=== PATIENT | female | born 1955 | race Hispanic/Latino ===

== ENCOUNTER 2021-03-30 17:29 | Observation (INO) | payer OTHER ==
--- OUTSIDE RECORDS SUMMARY | 2021-03-30 17:31 | XMS REPORT | Continuity of Care Document ---
:1955 Author Organization [facility] t Address [address] [place] [address] Care Team Providers Name Role Phone Unavailable Unavailable Unavailable Problems This patient has no known problems. Allergies, Adverse Reactions, Alerts Allergy Allergy Status Severity Reaction(s) Onset Inactive Treating Comm ents Source Name Type Date Date Clinician penicill Adverse Active Info Not [facility] codeine Adverse Active Info Not [facility] Reaction Available [facility] MORPHINE Adverse Active Info Not [facility] Reaction Available [facility] Medications Ordered Filled Start Stop Current Ordering Indication Dosage Frequency Signature Comments Components Source Medication Medication Date Date Medication? Clinician (SIG) Name Name Janumet XR Janumet XR Yes Erwin [address] [facility]25 [facility] Folic Acid Folic Acid Yes Eriwn [address] [facility]rano [facility] Vytorin Vytorin Yes Erwin [address] [facility] Atorvastati Atorvastati Yes Erwin [address] [facility] n Calcium n Calcium Medrano [facility] Lisinopril- Lisinopril- Yes Erwin [address] [facility] Hydrochloro Hydrochloro Medrano [facility] thiazide thiazide [facility] Janumet Janumet Yes Erwin [address] [facility]rano with meals [facility] Levothyroxi Levothyroxi Yes Erwin TK [address] [facility] ne Sodium ne Sodium [facility]rano QD [facility] Levothyroxi Levothyroxi Yes Erwin [address] [facility] ne Sodium ne Sodium Medrano in the [facility] kes - morning on [facility] an empty l stomach Outpati ent Clinics [facility] Yes Erwin 1 tablet [facility] Procedures This patient has no known procedures. Encounters Start End Encounter Admission Attending Care Care Encounter Source Date/Time Date/Time Type Type Clinicians Facility Department ID 2021-03-24 2021-03-[address] [facility] [id number] 2021-02-21 2021-02-[address] [facility] [id number] [facility] 2021-02-06 2021-02-06 [facility] [id number] [facility] 2021-01-30 2021-01-30 [facility] [id number] [facility] 2021-01-30 2021-01-30 [facility] [id number] [facility] 2021-01-30 2021-01-30 [facility] [id number] [facility] 2020-11-07 2020-11-07 [facility] [id number] [facility] 2020-10-21 2020-10-[address] [facility] [id number] [facility] 2020-10-19 2020-10-[facility] [id number] [facility] 2020-10-17 2020-10-17 [facility] [id number] [facility] 2020-10-11 2020-10-11 [facility] [id number] [facility] 2020-08-26 2020-08-26 Out[facility] [id number] [facility] 2020-07-26 2020-07-26 Out[facility] [id number] [facility] 2020-07-19 2020-07-19 Out[facility] [id number] [facility] 2020-06-06 2020-06-06 [facility] [id number] [facility] 2020-06-01 2020-06-01 Out[facility] [id number] [facility] 2020-04-12 2020-04-12 [facility] [id number] [facility] 11:30[facility]00 11:30:00 [facility] 2020-02-01 2020-02-01 [facility] [id number] 09:11:00 09:11:00 [facility] 2020-01-25 2020-01-25 [facility] [id number] 14:30:00 14:30:00 t [facility] [employer] [facility] 2019-11-30 2019-11-30 [facility] [id number] 14:40:00 14:40:00 t [facility] Outpat[facility] ent Clinics 2019-11-30 2019-11-30 [facility] [id number] 10:38:00 10:38:00 t [email or web address] [facility] Outpat[facility] Clinics 2019-11-23 2019-11-23 [facility] [id number] 08:49:00 08:49:00 t [email or web address] [facility] Out[facility] Clin[facility] 2019-09-09 2019-09-09 [facility] [id number] [facility] 09:00:00 09:00:00 t [email or web address] [facility] Results This patient has no known results.
--- NOTE | 2021-03-30 20:02 | RAD REPORT ---
EXAM DESCRIPTION: RAD - Chest Single View - 03/30/2021 7:30 pm CLINICAL HISTORY: Chest pain;SOB COMPARISON: None TECHNIQUE: AP portable chest image was obtained 03/30/2021 7:30 pm . FINDINGS: Lungs are clear. Heart and vasculature are normal. No measurable pleural effusion and no p neumothorax. No acute bony abnormality seen. No acute aortic findings suspected. IMPRESSION: No acute cardiopulmonary process.
[2021-03-30 21:21] LABS: Absolute Lymphocytes (CBC) 2.5 K/uL (0.7-4.9); Hematocrit 35.9 % (36.0-45.0); Lymphocytes % 36.4 % (15.3-44.8); MPV 8.1 fL (7.6-11.3); Protime INR 1.08; RBC Red Blood Cell Count 3.95 M/uL (3.86-4.86)
[2021-03-30] MEDS ORDERED: ASPIRIN 81 MG CHEWABLE TABLET ONE (21:33)
[2021-03-30] MEDS ORDERED: FENTANYL CITR 100 MCG/2 ML ONE (21:33)
[2021-03-30] MEDS ORDERED: NA CHLORIDE 0.9% 500 ML ONE (21:38)
[2021-03-30 21:39] LABS: ALT/SGPT 25 U/L (12-78); AST/SGOT 26 U/L (15-37); Albumin 4.6 g/dL (3.4-5.0); Alkaline Phosphatase 58 U/L (45-117); BUN Blood Urea Nitrogen 24 mg/dL (7-18); Bicarbonate 30 mmol/L (21-32); Bilirubin Direct 0.1 mg/dL (0-0.2); Bilirubin Total 0.6 mg/dL (0.2-1.0); Glucose Level 86 mg/dL (74-106); Magnesium 2.2 mg/dL (1.8-2.4); NT PRO-BNP 24 pg/mL (<125); Sodium Level 139 mmol/L (136-145); Troponin (Emerg Dept Use Only) < 0.02 ng/mL (0.0-0.045)
--- NOTE | 2021-03-30 22:20 | ER ---
Nurse's Notes [facility] Name: Margarita Dumont Age: 65 yrs Sex: Female : 1955 Arrival Date: 03/30/2021 Time: 17:31 Bed 25 Private MD: Erwin Medrano Diagnosis: Chest pain, unspecified Presentation: 03/30 17:43 Chief complaint: Patient states: Midsternal chest pain, radiates straight through to jl7 back, feels like indigestion, low BP, feeling tired since this morning. Coronavirus screen: Client denies travel out of the [place] in the last 14 days. fatigue, At this time, the client does not indicate any symptoms associated with coronavirus-19. Ebola Screen: No symptoms or risks identified at this time. Initial Sepsis Screen: Does the patient meet any 2 criteria? No. Patient's initial sepsis screen is negative. Does the patient have a suspected source of infection? No. Patient's initial sepsis screen is negative. Risk Assessment: Do you want to hurt yourself or someone else? Patient reports no desire to harm self or others. Onset of symptoms was March 30, 2021. 17:43 Method Of Arrival: Ambulatory [facility] 17:43 Acuity: SETH 3 jl7 Triage Assessment: 21:13 General: Appears in no apparent distress. Behavior is calm. Pain: Complains of pain in lh3 chest. Cardiovascular: No deficits noted. Historical: - Allergies: 17:47 PENICILLINS; jl7 17:47 Codeine; jl7 17:47 Morphine; jl7 - PMHx: 17:47 Diabetes mellitus; Hypertensive disorder; high cholesterol; jl7 - Immunization history:: Client reports receiving the 2nd dose of the Covid vaccine, Date received: November 2020 [employer]. - Social history:: Smoking status: Patient denies any tobacco usage or history of. Screenin:27 Abuse screen: Denies threats or abuse. Nutritional screening: No deficits noted. 3 Tuberculosis screening: No symptoms or risk factors identified. Fall Risk IV access (20 points). Assessment: 21:27 Pain: Pain does not radiate. Pain began 1 day ago. 3 03/31 00:00 Reassessment: pt appears to be sleeping, eyes closed, resp unlabored, awaiting room bb assignment. 01:51 Reassessment: Patient is alert, oriented x 3, equal unlabored respirations, skin bb warm/dry/pink. Vital Signs: 03/30 17:43 BP 131 / 60 LA; jl7 17:43 BP 136 / 64; Pulse 64; Resp 17; Temp 97.3; Pulse Ox 100% ; Weight 63.5 kg; Height 5 ft. jl7 4 in. (162.56 cm); Pain 7/10; 22:49 BP 142 / 49; Pulse 58; Resp 18; Pulse Ox 100% on R/A; ld1 03/31 01:51 BP 101 / 59; Pulse 57; Resp 16 S; Temp 97.7(O); Pulse Ox 100% on R/A; bb 03/30 17:43 Body Mass Index 24.03 (63.50 kg, 162.56 cm) jl7 ED Course: 03/30 17:31 Patient arrived in ED. mr 17:31 Erwin Medrano DO is Private Physician. mr 17:46 Triage completed. jl7 17:47 Arm band placed on right wrist. Patient placed in waiting room, Patient notified of jl7 wait time. EKG completed in triage. Results shown to MD. 18:48 Piyush Bob PA is PHCP. cp 18:48 Kevin lGass MD is Attending Physician. cp 19:30 XRAY Chest (1 view) In Process Unspecified. EDMS 21:13 Zoey Desai, NEHAL is Primary Nurse. lh3 21:27 Patient has correct armband on for positive identification. Call light in reach. Side lh3 rails up X 1. Pulse ox on. NIBP on. 21:27 No provider procedures requiring assistance completed. Inserted saline lock: 20 gauge lh3 in left antecubital area, using aseptic technique. Patient maintains SpO2 saturation greater than 95% on room air. 22:18 Brian Marie PA is Hospitalizing Provider. cp 03/31 02:17 Patient admitted, IV remains in place. bb Administered Medications: 03/30 21:26 Drug: Aspirin Chewable Tablet 324 mg Route: PO; 3 21:32 Follow up: Response: No adverse reaction lh3 21:26 Drug: NS 0.9% 500 ml Route: IV; Rate: bolus; Site: left antecubital; 3 21:26 Drug: fentaNYL (PF) 25 mcg Route: IVP; Site: left antecubital; 3 21:33 Follow up: Response: No adverse reaction lh3 Outcome: 22:19 Decision to Hospitalize by Provider. annemarie 03/31 02:16 Admitted to Tele accompanied by tech, via wheelchair, room 208, with chart, Report bb called to Tina CALVERT Condition: stable Instructed on the need for admit. 02:17 Patient left the ED. bb Signatures: Dispatcher [employer] Yomaira Serrano Brenda RN RN bb Piyush Bob PA PA Kajal Schilling RN RN jl7 Dana Interiano RN RN ld1 Zoey Desai RN RN lh3 Corrections: (The following items were deleted from the chart) 03/30 17:48 17:47 Allergies: No Known Allergies; william thomas
--- NOTE | 2021-03-30 22:20 | EDPHYS ---
Physician Documentation [facility] Name: Margarita Dumont Age: 65 yrs Sex: Female : 1955 Arrival Date: 03/30/2021 Time: 17:31 Bed 25 Private MD: [facility] ED Physician Kevin Glass HPI: 03/30 20:50 This 65 yrs old Female presents to ER via Ambulatory with complaints of Chest cp Pain, Low BP. 20:50 The patient or guardian reports chest pain that is located primarily in the anterior cp chest wall, left. 20:50 Onset: this morning. The pain radiates to Associated signs and symptoms: Pertinent cp negatives: abdominal pain, cough, diaphoresis, dizziness, headache, lower extremity pain, lower extremity swelling, shortness of breath, syncope. 20:50 The chest pain is described as aching, sharp. Duration: The patient or guardian reports cp a single episode, that is still ongoing, but improving. Modifying factors: The symptoms are alleviated by nothing. the symptoms are aggravated by nothing. Historical: - Allergies: 17:47 PENICILLINS; jl7 17:47 Codeine; jl7 17:47 Morphine; jl7 - PMHx: 17:47 Diabetes mellitus; Hypertensive disorder; high cholesterol; jl7 - Immunization history:: Client reports receiving the 2nd dose of the Covid vaccine, Date received: November 2020 [employer]. - Social history:: Smoking status: Patient denies any tobacco usage or history of. ROS: 21:00 Constitutional: Negative for body aches, chills, fever, poor PO intake. cp 21:00 Eyes: Negative for injury, pain, redness, and discharge. cp 21:00 ENT: Negative for ear pain, sore throat, difficulty swallowing, difficulty handling secretions. 21:00 Cardiovascular: Positive for chest pain, Negative for edema, palpitations. 21:00 Respiratory: Negative for cough, shortness of breath, wheezing. 21:00 Abdomen/GI: Negative for abdominal pain, nausea, vomiting, and diarrhea, anorexia, black/tarry stool, rectal bleeding. 21:00 Back: Positive for radiated pain. 21:00 Skin: Negative for rash. 21:00 Neuro: Negative for altered mental status, dizziness, headache, syncope, weakness. 21:00 All other systems are negative. Exam: 17:55 ECG was reviewed by the Attending Physician. cp 21:05 Constitutional: The patient appears in no acute distress, alert, awake, cp non-diaphoretic, non-toxic, well developed, well nourished. 21:05 Head/Face: Normocephalic, atraumatic. cp 21:05 Eyes: Periorbital structures: appear normal, Pupils: equal, round, and reactive to light and accomodation, Extraocular movements: intact throughout, Conjunctiva: normal, no exudate, no injection, Sclera: no appreciated abnormality, Lids and lashes: appear normal, bilaterally. 21:05 ENT: External ear(s): are unremarkable, Nose: is normal, Mouth: Lips: moist, Oral mucosa: moist, Posterior pharynx: Airway: no evidence of obstruction, patent. 21:05 Neck: ROM/movement: is normal, is supple, without pain, no range of motions limitations, no nuchal rigidity. 21:05 Chest/axilla: Inspection: normal, Palpation: is normal, no crepitus, no tenderness. 21:05 Cardiovascular: Rate: normal, Rhythm: regular, Pulses: Pulses are 2+ in right radial artery and left radial artery. Heart sounds: murmur, not appreciated, Edema: is not appreciated, JVD: is not appreciated. 21:05 Respiratory: the patient does not display signs of respiratory distress, Respirations: normal, no use of accessory muscles, no retractions, labored breathing, is not present, Breath sounds: are clear throughout, no decreased breath sounds, no stridor, no wheezing. 21:05 Abdomen/GI: Inspection: abdomen appears normal, Palpation: abdomen is soft and non-tender, in all quadrants. 21:05 Back: pain, that is mild, of the left scapular area and left subscapular area, ROM is normal. 21:05 Skin: no rash present. 21:05 Neuro: Orientation: to person, place \T\ time. Mentation: is normal, Cerebellar function: is grossly normal, Motor: moves all fours, strength is normal, Sensation: is normal. Vital Signs: 17:43 BP 131 / 60 LA; jl7 17:43 BP 136 / 64; Pulse 64; Resp 17; Temp 97.3; Pulse Ox 100% ; Weight 63.5 kg; Height 5 ft. jl7 4 in. (162.56 cm); Pain 7/10; 22:49 BP 142 / 49; Pulse 58; Resp 18; Pulse Ox 100% on R/A; ld1 03/31 01:51 BP 101 / 59; Pulse 57; Resp 16 S; Temp 97.7(O); Pulse Ox 100% on R/A; bb 03/30 17:43 Body Mass Index 24.03 (63.50 kg, 162.56 cm) jl7 MDM: 03/30 20:30 Patient medically screened. cp 21:00 Differential diagnosis: abnormal EKG, acute myocardial infarction, chest wall pain, cp cholecystitis, Cholelithiasis costochondritis, pneumonia, pneumothorax, pulmonary embolus, stable angina, thoracic aortic disection, unstable angina. 22:15 The patient was given aspirin in the Emergency Department. cp 22:15 Data reviewed: vital signs, nurses notes, lab test result(s), EKG, radiologic studies, cp plain films. Test interpretation: by ED physician or midlevel provider: ECG, plain radiologic studies. Counseling: I had a detailed discussion with the patient and/or guardian regarding: the historical points, exam findings, and any diagnostic results supporting the discharge/admit diagnosis, lab results, radiology results, the need for further work-up and treatment in the hospital. Physician consultation: Brian CHRISTOPHER was contacted at 22:15, regarding admission, to the telemetry unit. 03/30 18:50 Order name: Basic Metabolic Panel cp 03/30 18:50 Order name: CBC with Diff cp 03/30 18:50 Order name: LFT's; Complete Time: 21:42 cp 03/30 18:50 Order name: Magnesium; Complete Time: 21:42 cp 03/30 18:50 Order name: NT PRO-BNP; Complete Time: 21:42 cp 03/30 18:50 Order name: PT-INR; Complete Time: 21:42 cp 03/30 18:50 Order name: Troponin (emerg Dept Use Only); Complete Time: 21:42 cp 03/30 18:50 Order name: XRAY Chest (1 view); Complete Time: 21:42 cp 03/30 18:50 Order name: Basic Metabolic Panel; Complete Time: 21:42 EDMS 03/30 18:50 Order name: CBC with Automated Diff; Complete Time: 21:42 EDMS 03/30 22:53 Order name: COVID-19/FLU A+B EDMS 03/30 18:50 Order name: EKG; Complete Time: 18:51 cp 03/30 18:50 Order name: Cardiac monitoring; Complete Time: 21:35 cp 03/30 18:50 Order name: EKG - Nurse/Tech; Complete Time: 21:35 cp 03/30 18:50 Order name: IV Saline Lock; Complete Time: 21:35 cp 03/30 18:50 Order name: Labs collected and sent; Complete Time: 21:35 cp 03/30 18:50 Order name: O2 Per Protocol; Complete Time: 22:50 cp 03/30 18:50 Order name: O2 Sat Monitoring; Complete Time: 22:50 03/30 21:43 Order name: Blood Pressure Recheck: bilateral upper extremity; Complete Time: 22:50 03/31 00:48 Order name: CONS Physician Consult EDMS EC:55 Rate is 63 beats/min. Rhythm is regular. OK interval is normal. QRS interval is normal. cp QT interval is normal. T waves are Inverted in leads aVR, V2, V3. Interpreted by me. Reviewed by me. Administered Medications: 21:26 Drug: Aspirin Chewable Tablet 324 mg Route: PO; lh3 21:32 Follow up: Response: No adverse reaction lh3 21:26 Drug: NS 0.9% 500 ml Route: IV; Rate: bolus; Site: left antecubital; lh3 21:26 Drug: fentaNYL (PF) 25 mcg Route: IVP; Site: left antecubital; lh3 21:33 Follow up: Response: No adverse reaction lh3 Disposition: 03/31 07:50 Co-signature as Attending Physician, Kevin Glass MD I agree with the assessment and kdr plan of care. Disposition Summary: 03/30/21 22:19 Hospitalization Ordered Hospitalization Status: Observation cp Provider: Brian Marie cp Location: Telemetry/MedSurg (observation) cp Condition: Stable cp Problem: new cp Symptoms: have improved cp Bed/Room Type: Standard cp Room Assignment: 218(03/31/21 01:02) tl1 Diagnosis - Chest pain, unspecified cp Forms: - Medication Reconciliation Form cp - SBAR form cp Signatures: Dispatcher [employer] Kevin Merchant MD MD kdr Alisson Harrison RN RN tl1 Piyush Bob PA PA cp Kajal Tyler, RN RN jl7 Zoey Desai RN RN lh3 Corrections: (The following items were deleted from the chart) 03/30 17:48 17:47 Allergies: No Known Allergies; jl7 jl7 21:04 18:49 This 65 yrs old Female presents to ER via Ambulatory with complaints of cp Chest Pain, Low BP. cp : 18:51 CORONAVIRUS+MR.LAB.BRZ ordered. EDMS EDMS : 18:51 Influenza Screen (A \T\ B)+BA.LAB.BRZ ordered. EDMS EDMS 03/31 01:02 03/30 22:19 cp tl1 03/31 16:01 03/30 20:50 Onset: today, cp cp
[2021-03-30 22:53] LABS: SARS-COV-2 RT PCR NEGATIVE (NEGATIVE)
--- NOTE | 2021-03-31 02:09 | P.HP ---
Certification for Inpatient Patient admitted to: Observation With expected LOS: <2 Midnights Patient will require the following post-hospital care: None Practitioner: I am a practitioner with admitting privileges, knowledge of patient current condition, hospital course, and medical plan of care. Services: Services provided to patient in accordance with Admission requirements found in Title 42 Section 412.3 of the Code of Federal Regulations Patient History Date of Service: 03/31/21 Primary Care Provider: Mitchell Reason for admission: chest pain History of Present Illness: Ms. Dumont is a 65 yo F with DM, HTN, HLD, s/p thyroidectomy who presents with 3 days of intermittent 7/10 substernal chest pain. She says the pain feels like stabbing, and initially she thought it was heartburn except that it lasted longer. She reports fatigue, dizziness, blurry vision ,nausea and vomiting. She reports weakness in her arms with the ches tpain . 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 Allergies codeine Allergy (Verified 03/30/21 22:59) Nausea/Vomiting morphine Allergy (Verified 03/30/21 22:59) Nausea/Vomiting Penicillins Allergy (Verified 03/30/21 22:59) Itching - Past Medical/Surgical History -: DM -: HTN -: HLD -: thyroidectomy -: hysterectomy -: tubal reversal -: appendectomy -: cholecystectomy -: wrist surgery -: shoulder surgery - Social History Smoking Status: Never smoker Alcohol use: Yes CD- Drugs: No Caffeine use: Yes Place of Residence: Home Review of Systems Eyes: Vision Change Cardiovascular: Chest Pain, Light Headedness Gastrointestinal: Nausea, Vomiting Physical Examination - Physical Exam General: Alert, In no apparent distress HEENT: Atraumatic, PERRLA, Mucous membr. moist/pink, EOMI, Sclerae nonicteric Neck: Supple, 2+ carotid pulse no bruit, No LAD, Without JVD or thyroid abnormality Respiratory: Clear to auscultation bilaterally, Normal air movement Cardiovascular: Regular rate/rhythm, Normal S1 S2 Gastrointestinal: Normal bowel sounds, No tenderness Musculoskeletal: No tenderness Integumentary: No rashes Neurological: Normal gait, Normal speech, Normal strength at 5/5 x4 extr, Normal tone, Normal affect Lymphatics: No axilla or inguinal lymphadenopathy - Studies Laboratory Data (last 24 hrs) 03/30/21 21:00: PT 12.4, INR 1.08 08/12/21 21:00: WBC 6.80, Hgb 12.4, Hct 35.9 L, Plt Count 222 03/30/21 21:00: Sodium 139, Potassium 4.0, BUN 24 H, Creatinine 0.93, Glucose 86, Magnesium 2.2, Total Bilirubin 0.6, AST 26, ALT 25, Alkaline Phosphatase 58 Assessment and Plan - Problems (Diagnosis) (1) T2DM (type 2 diabetes mellitus) Current Visit: Yes Status: Chronic Qualifiers: Diabetes mellitus prison insulin use: without prison use Diabetes mellitus complication status: without complication Qualified Code(s): E11.9 - Type 2 diabetes mellitus without complications (2) HTN (hypertension) Current Visit: Yes Status: Chronic Qualifiers: Hypertension type: primary hypertension Qualified Code(s): I10 - Essential (primary) hypertension (3) HLD (hyperlipidemia) Current Visit: Yes Status: Chronic Qualifiers: Hyperlipidemia type: unspecified Qualified Code(s): E78.5 - Hyperlipidemia, unspecified (4) Chest pain Current Visit: Yes Status: Acute Qualifiers: Chest pain type: unspecified Qualified Code(s): R07.9 - Chest pain, unspecified - Plan cardiology consulted on telemetry, repeat EKG, trend troponins daily ASA, statin, metoprolol PRN morphine and NTG BP stable, continue to monitor lipid panel and TFTs pending sliding scale insulin and accuchecks DVT ppx Discharge Plan: Home Plan to discharge in: 24 Hours - Advance Directives Does patient have a Living Will: No Does patient have a Durable POA for Healthcare: No - Code Status/Comfort Care Code Status Assessed: Yes (full code ) Critical Care: No Time Spent Managing Pts Care (In Minutes): 70
[2021-03-31 02:21] VITALS: BMI 23.9
[2021-03-31] MEDS ORDERED: ONDANSETRON 4 MG/2 ML VIAL IV PRN (02:43)
[2021-03-31] MEDS ORDERED: ACETAMINOPHEN 500 MG TAB PO PRN (02:43)
[2021-03-31] MEDS ORDERED: NITROGLYCERIN 0.4 MG/TAB SL PRN (02:43)
[2021-03-31] MEDS ORDERED: METOPROLOL TAR 25 MG TAB PO SCH (06:00)
[2021-03-31] MEDS: INSULIN -REGULAR HUMAN 50 UNIT/0.5 ML ML SQ SCH ×3 (07:30→16:30)
[2021-03-31] MEDS ORDERED: ENOXAPARIN 40 MG/0.4 ML SQ SCH (09:00)
[2021-03-31] MEDS ORDERED: FOLIC ACID 1 MG TABLET PO SCH (09:00)
[2021-03-31] MEDS ORDERED: ASPIRIN EC 81 MG TAB PO SCH (09:00)
--- NOTE | 2021-03-31 09:37 | P.DS ---
Admission Date: 03/31/21 Discharge Date: 03/31/21 Primary Care Provider: Dr. Medrano Disposition: ROUTINE DISCHARGE Discharge Condition: GOOD Reason for Admission: chest pain Consultations: Cardiology-Dr. Parr Procedures: COVID: Negative Chest x-ray: COMPARISON: None TECHNIQUE: AP portable chest image was obtained 03/30/2021 7:30 pm . FINDINGS: Lungs are clear. Heart and vasculature are normal. No measurable pleural effusion and no pneumothorax. No acute bony abnormality seen. No acute aortic findings suspected. IMPRESSION: No acute cardiopulmonary process. Heart catheterization: Normal coronaries Medical problem list: Chest pain status post heart catheterization which revealed normal coronaries Hypertension Diabetes mellitus type 2 Surgical hypothyroidism Hyperlipidemia Brief History of Present Illness: 65-year-old female with history of diabetes, hypertension, hyperlipidemia and surgical hypothyroidism. Patient reports chest pain intermittent for 3 days. She thought it was heartburn related. Patient has not seen cardiology in the past. Patient admitted for observation for further evaluation. Hospital Course: Patient presented with chest pain. Patient with multiple risk factors including hypertension, diabetes, hyperlipidemia and age. Patient seen and evaluated by cardiology. Cardiac enzymes unremarkable. Cardiology recommended heart catheterization. Heart catheterization performed showed normal coronaries. No further intervention required. At discharge patient will continue with aspirin 81 mg daily. Recommend follow-up with PCP to further monitor and adjust her recommendations below. Patient with hypertension. Patient takes lisinopril hydrochlorothiazide 20/12.5 mg daily. Patient will continue with her medication. Recommend to maintain blood pressure less than 130/80. Further adjustment can be done by her PCP. Patient with diabetes mellitus type 2. At discharge patient will continue with her medication Janumet 100/1000 mg half a tablet daily. Recommend to maintain blood sugar less than 140 fasting and less than 200 after meals. If blood sugars remain above 200 consistently further adjustment in medication may be required. Recommend to recheck hemoglobin A1c every 3 months to monitor her progress. Recommend follow-up with PCP to further address and monitor. Patient with surgical hypothyroidism. Patient previously on thyroid medication. Patient currently takes [place] Thyroid. TSH 119, free T4 0.48. Will recommend to discontinue [place] Thyroid and switch over to Synthroid 75 mcg daily. Recommend to recheck TSH and free T4 in 4 to 6 weeks to monitor her progress. Recommend endocrinology evaluation as an outpatient to further address and treat. Patient with hyperlipidemia. LDL 197, HDL 60. Triglycerides 250. Patient was started on Lipitor. Recommend to continue Lipitor 40 mg daily. Hold medication if with increased arthralgias or elevated liver function. Recommend to recheck fasting lipid panel in 4 to 6 weeks along with CMP. Further adjustment in medication can be done by her PCP. Vital Signs/Physical Exam: Temp Pulse Resp BP Pulse Ox 97.7 F 57 16 134/61 03/31/21 01:51 03/31/21 06:21 03/31/21 01:51 03/31/21 06:21 General: Alert, In no apparent distress, Oriented x3, Cooperative HEENT: Atraumatic Neck: Supple Respiratory: Clear to auscultation bilaterally, Normal air movement Cardiovascular: Normal pulses, Regular rate/rhythm Gastrointestinal: Normal bowel sounds, No tenderness, No masses, No rebound, No guarding Musculoskeletal: No erythema, No tenderness, No warmth Integumentary: No tenderness/swelling Neurological: Normal speech, Normal strength at 5/5 x4 extr, Normal tone, Normal affect Laboratory Data at Discharge: WBC 6.80 K/uL (4.3-10.9) 03/30/21 21:00 Hgb 12.4 g/dL (12.0-15.0) 03/30/21 21:00 Hct 35.9 % (36.0-45.0) L 03/30/21 21:00 Plt Count 222 K/uL (152-406) 03/30/21 21:00 PT 12.4 SECONDS (9.5-12.5) 03/30/21 21:00 INR 1.08 03/30/21 21:00 Sodium 139 mmol/L (136-145) 03/30/21 21:00 Potassium 4.0 mmol/L (3.5-5.1) 03/30/21 21:00 BUN 24 mg/dL (7-18) H 03/30/21 21:00 Creatinine 0.93 mg/dL (0.55-1.3) 03/30/21 21:00 Glucose 86 mg/dL (74-106) 03/30/21 21:00 Magnesium 2.2 mg/dL (1.8-2.4) 03/30/21 21:00 Total Bilirubin 0.6 mg/dL (0.2-1.0) 03/30/21 21:00 AST 26 U/L (15-37) 03/30/21 21:00 ALT 25 U/L (12-78) 03/30/21 21:00 Alkaline Phosphatase 58 U/L (45-117) 03/30/21 21:00 Troponin I < 0.02 ng/mL (0.0-0.045) 03/31/21 07:26 Triglycerides 113 mg/dL (<150) 03/31/21 03:19 Cholesterol 280 mg/dL (<200) H 03/31/21 03:19 HDL Cholesterol 60 mg/dL (40-60) 03/31/21 03:19 Cholesterol/HDL Ratio 4.67 03/31/21 03:19 Home Medications: Aspirin [Aspirin EC 81 MG] 81 mg PO DAILY #90 tablet. 03/31/21 Atorvastatin Calcium [Lipitor] 40 mg PO BEDTIME #30 tab 03/31/21 Folic Acid 1 mg PO DAILY 03/31/21 Levothyroxine Sodium [Synthroid] 75 mcg PO DAILY #30 tablet 03/31/21 Lisinopril/Hydrochlorothiazide [Lisinopril-Hctz 20-12.5 mg Tab] 1 tab PO DAILY 03/31/21 Sitagliptin Phos/Metformin HCl [Janumet Xr 100-1,000 mg Tablet] 0.5 tab PO DAILY 03/31/21 New Medications: Aspirin [Aspirin EC 81 MG] 81 mg PO DAILY #90 tablet. Atorvastatin Calcium [Lipitor] 40 mg PO BEDTIME #30 tab Levothyroxine Sodium [Synthroid] 75 mcg PO DAILY #30 tablet Physician Discharge Instructions: Patient presented with chest pain. Patient with multiple risk factors including hypertension, diabetes, hyperlipidemia and age. Patient seen and evaluated by cardiology. Cardiac enzymes unremarkable. Cardiology recommended heart catheterization. Heart catheterization performed showed normal coronaries. No further intervention required. At discharge patient will continue with aspirin 81 mg daily. Recommend follow-up with PCP to further monitor and adjust her recommendations below. Patient with hypertension. Patient takes lisinopril hydrochlorothiazide 20/12.5 mg daily. Patient will continue with her medication. Recommend to maintain blood pressure less than 130/80. Further adjustment can be done by her PCP. Patient with diabetes mellitus type 2. At discharge patient will continue with her medication Janumet 100/1000 mg half a tablet daily. Recommend to maintain blood sugar less than 140 fasting and less than 200 after meals. If blood sugars remain above 200 consistently further adjustment in medication may be required. Recommend to recheck hemoglobin A1c every 3 months to monitor her progress. Recommend follow-up with PCP to further address and monitor. Patient with surgical hypothyroidism. Patient previously on thyroid medication. Patient currently takes [place] Thyroid. TSH 119, free T4 0.48. Will recommend to discontinue [place] Thyroid and switch over to Synthroid 75 mcg daily. Recommend to recheck TSH and free T4 in 4 to 6 weeks to monitor her progress. Recommend endocrinology evaluation as an outpatient to further address and treat. Patient with hyperlipidemia. LDL 197, HDL 60. Triglycerides 250. Patient was started on Lipitor. Recommend to continue Lipitor 40 mg daily. Hold medication if with increased arthralgias or elevated liver function. Recommend to recheck fasting lipid panel in 4 to 6 weeks along with CMP. Further adjustment in medication can be done by her PCP. Diet: ADA Activity: Ad boubacar Followup: Erwin Medrano, [Primary Care Provider] - Time spent managing pt's care (in minutes): 55
[2021-03-31] MEDS: hydroCHLOROthiazide 12.5 MG CAP PO SCH ×2 (10:43→10:45)
--- NOTE | 2021-03-31 11:58 | CON ---
Date of Consultation: 03/31/2021 Reason For Consultation: Chest pain. History Of Present Illness: A 65-year-old female started having on and off chest pain this week, pre ssure-like, radiates to arms and to back and is triggered by activity. She has history of diabetes, hypertension, dyslipidemia, and hypothyroidism. She still has some leftover chest pain. With these severe episodes, she would get nauseated. Past Medical History: As outlined above in the HPI. Medications: Refer reconciliation sheet for detailed list. Allergies: CODEINE, MORPHINE, AND PENICILLIN. Past Surgical History: Cholecystectomy, appendectomy, shoulder surgery. Social History: Does not smoke or drink. Does not use any drugs. Family History: No premature coronary disease or cancer. Review of Systems: All systems reviewed were negative except for mentioned in HPI. Physical Examination: Vital Signs: Reviewed Head and Neck: Pupils are equal, reactive to light. Intact eye movements. No JVD. No cervical lym phadenopathy. Neck: Supple. Thyroid is not enlarged. Lungs: Clear to auscultation bilaterally. No rhonchi, rales, or crackles. No accessory muscle use. Heart: Regular rate and rhythm. No extra sounds. Abdomen: Soft, nontender. Bowel sounds positive. No organomegaly. No masses or hernia. No rigidi ty or rebound. Extremities: No edema, clubbing, cyanosis. Intact pulses Skin: No rash noted. Neurologic: Alert, awake, oriented x3. No acute focal deficits appreciated. Investigations: Labs were reviewed. Troponins have been negative. Assessment And Recommendations: 1.Chest pain. Atypical symptoms, could be suggestive of unstable angina. Keep n.p.o. Plan for cor onary angiogram this afternoon before discharge. 2.Continue aspirin and nitroglycerin for pain control. 3.Hypothyroidism. Very high TSH. Recommend adjustment of the thyroid medications. SR/MODL Voice ID: [id number] Report ID: [id number]
[2021-03-31] MEDS ORDERED: LIDOCAINE 1% 20 ML MDV ONE (12:26)
[2021-03-31] MEDS ORDERED: HEPA 1000U/500MLS 2,000 UNIT/1,000 ML BAG IV ONE (12:26)
[2021-03-31] MEDS ORDERED: MIDAZOLAM HCL 2 MG/2 ML INJ ONE (14:49)
[2021-03-31] MEDS ORDERED: FENTANYL CITR 100 MCG/2 ML ONE (14:49)
[2021-03-31] MEDS ORDERED: HEPARIN 5000 UNIT/ML 1 ML VIAL ONE (14:49)
[2021-03-31] MEDS ORDERED: VERAPAMIL HCL 10 MG/4 ML VIAL IV ONE (14:49)
[2021-03-31] MEDS ORDERED: NITROGLYCERIN 100 MCG/ML SYR (for cath lab use only) IV ONE (14:50)
[2021-03-31] MEDS ORDERED: HEPARIN 10,000 UNIT/10 ML VIAL IV ONE (14:50)
[2021-03-31] MEDS ORDERED: NITROGLYCERIN/D5W 25 MG/250 ML BTL IV ONE (14:50)
[2021-03-31] MEDS ORDERED: ATROPINE SULF 1 MG/10 ML SYR IV ONE (14:50)
[2021-03-31] MEDS ORDERED: NA CHLORIDE 0.9% 500 ML ONE (14:52)
--- NOTE | 2021-03-31 16:26 | OP ---
Date of Procedure: 03/31/2021 Surgeon: COLT RODRIGUEZ Procedures Performed: 1.Selective coronary angiogram. 2.Left heart catheterization. Access: Right radial artery 6-Italian closed with TR band. Complications: None. Bleeding: Less than 10 mL. Description Of Procedure: After risks, benefits, and alternatives were explained, the patient agreed to procedure and signed informed consent. The patient was brought into the cardiac catheterization laboratory, prepped and draped in usual sterile fashion and we accessed right radial artery using ped iatric micropuncture kit, placed a 6-Italian slender sheath and then took a 5-Italian TIG 4.0 catheter into the aortic root, engaged left main, right coronary artery, took standard views. The catheter wa s pushed over the wire into the LV and recorded LVEDP and upon pullback, there was no difference in p ressure, no gradient and the catheter was removed. Sheath was removed and TR band was placed without complications and good hemostasis. Findings: 1.Left main is large and normal. 2.LAD normal with the diagonal branches being normal. 3.Left circumflex [id number] size and it is normal. 4.RCA large, dominant and normal. 5.LVEDP of 12 mmHg. Conclusion: 1.Normal coronary arteries. 2.Normal LVEDP. Recommendations: Search for other causes of chest pain. Of note, the indication of this procedure w as unstable angina symptoms. SR/MODL Voice ID: [id number] Report ID: [id number]
[2021-03-31 17:20] VITALS: O2SAT 97
[2021-03-31 17:46] VITALS: BP 137/59; TEMP 97
[2021-03-31] MEDS ORDERED: ATORVASTATIN 40 MG TAB PO SCH (21:00)
[2021-04-01] MEDS ORDERED: HOME MED 1 EA UNK (Lisinopril/Hydrochlorothiazide [Lisinopril-Hctz 20-12.5 Mg Tab] Tablet) PO SCH (09:00)
[2021-04-01] MEDS ORDERED: lisinopriL 20 MG TAB PO SCH (09:00)
== END 2021-03-31 18:25 | disposition home or self-care (01) ==
LOC: ER 17:29 → ERHOLD 03-31 00:48 → 2ND 03-31 01:55
PROVIDERS: ADMIT Hospitalist; ATTEND Family Medicine
DX: R07.9 Chest pain, unspecified (principal); I10 Essential (primary) hypertension; E11.9 Type 2 diabetes mellitus without complications; E78.5 Hyperlipidemia, unspecified; E89.0 Postprocedural hypothyroidism; Z20.822 Contact with and (suspected) exposure to COVID-19; Z88.6 Allergy status to analgesic agent; Z88.0 Allergy status to penicillin; Z90.710 Acquired absence of both cervix and uterus; Z90.49 Acquired absence of other specified parts of digestive tract
CPT/HCPCS: 93005; 85025; 80048; 36415; 83735; 85610; 80061; 82947; 80076; 84443; 84484 ×3; 84439; 83880; 0240U; 71045; 93458; 94760 ×2; 96374; 99285; C1893; J1644 ×2; J2250; J3010 ×2; G0378 ×6; J7040 ×2; J1650

== ENCOUNTER 2022-03-22 16:51 | Emergency (ER) | payer OTHER ==
--- OUTSIDE RECORDS SUMMARY | 2022-03-22 16:54 | XMS REPORT | Continuity of Care Document ---
:1955 Author Organization [facility] t Address [address] [place] [address] Dr. Mcallister [address] [place] [address] Care Team Providers Name Role Phone Erwin Merdano DO Primary Care Physician [phone] Erwin Medrano Attending Clinician Unavailable PAZ CANTRELL Attending Clinician Unavailable Payers Payer Name Policy Type Policy Number Effective Date Expiration Date S nickie MEDICARE PART A \T\ B [id number] - MEDICARE MEDICARE PLAN PPO - [id number] [employer] Problems This patient has no known problems. Allergies, Adverse Reactions, Alerts Allergy Allergy Status Severity Reaction(s) Onset Inactive Treating Comm ents Source Name Type Date Date Clinician Codeine Propensi Active Vomiting [facility] to Only 7-12 [facility] adverse 00:00: of reaction 00 Medicin s to e drug Opioid Propensi Active Vomiting [facility] Analgesi ty to Only 7-12 College cs adverse 00:00: of reaction 00 Medicin s to e drug Penicill Propensi Active Rash [facility] ins ty to 7-12 College adverse 00:00: of reaction 00 Medicin s to e drug penicill Adverse Active Info Not Commo n in Reaction Available [facility] codeine Adverse Active Info Not Common Reaction Available [facility] MORPHINE Adverse Active Info Not Commo n Reaction Available [facility] Social History Social Habit Start Date Stop Date Quantity Comments Source Tobacco use and 2022-02-27 2022-02-27 Smokeless tobacco [employer] exposure 00:00:00 00:00:00 non-user of Medicine Alcohol intake 2022-02-27 2022-02-27 [facility] 00:00:00 00:00:00 non-drinker of Medicine (finding) Sex Ass[birth year] F [facility] [employer] 00:00:00 00:00:00 of Medicine Smoking Status Start Date Stop Date Source Never smoked tobacco [facility] of Medicine Medications Ordered Filled Start Stop Current Ordering Indication Dosage Frequency Signature Comments Components Source Medication Medication Date Date Medication? Clinician (SIG) Name Name folic acid Yes 1{tbl} 1 Tablet. [facility] (FOLVITE) 1 7-12 College MG tablet 13:33: of 54 Medicin e levothyroxi Yes TAKE 1 [facility] 6-01 TABLET IN [place] (SYNTHROID) 00:00: THE of 88 MCG 00 MORNING ON Medicin tablet AN EMPTY e STOMACH (NAME BRAND ONLY) ORALLY ONCE A DAY 90 DAYS JANUMET XR Yes TAKE 1/2 [place] 100-1000 MG 5-23 TABLET BY Col lege TB24 00:00: MOUTH of 00 DAILY 90 Medicin e Janumet XR Janumet XR 0 Yes Erwin 1 tab Common 8-25 [facility] 00:00: - [facility] 00 [facility] Folic Acid Folic Acid Yes Erwin 1 tablet Common Medrano [facility] Vytorin Vytorin Yes Erwin 1 tablet Com mon Medrano [facility] Atorvastati Atorvastati Yes Erwin 1 tablet Common n Calcium n Calcium [facility] Lisinopril- Lisinopril- Yes Erwin 1 tablet Common Hydrochloro Hydrochloro [facility] thiazide thiazide [place] Janumet Janumet Yes Erwin 1 tablet Com mon [facility] with meals [facility] Levothyroxi Levothyroxi Yes Erwin TK 1 T PO Common ne Sodium ne Sodium [facility] QD Spir [facility] Levothyroxi Levothyroxi Yes Erwin 1 tablet Common ne Sodium ne Sodium [facility] in the Sp nola morning on - [facility] an empty stomach [facility] Livalo Livalo Yes Erwin 1 tablet Commo n [facility] - [facility] Vital Signs Vital Name Observation Time Observation Value Comments Source Systolic blood 2022-02-27 18:17:00 117 mm[Hg] [facility] pressure Medicine Diastolic blood 2022-02-27 18:17:00 64 mm[Hg] [facility] Medicine Heart rate 2022-02-27 18:17:00 77 /min [facility] Respiratory rate 2022-02-27 18:17:00 14 /min [facility] Body height 2022-02-27 18:17:00 162.6 cm [facility] Body weight 2022-02-27 18:17:00 58.968 kg [facility] BMI 2022-02-27 18:17:00 22.31 kg/m2 [facility] Procedures Procedure Date / Time Performed Performing Clinician [facility] e URINALYSIS AUTO W/SCOPE 2022-02-27 14:16:13 [facility] CULTURE, 2022-02-27 14:16:13 [facility] ge of URINE/SENSITIVITY ON Medicine ALL POCT URINALYSIS 2022-02-27 00:00:00 Paz Cantrell [facility] DIPSTICK Medicine MICHELLE,POST-VOID 2022-02-27 00:00:00 Paz Cantrell [facility] of [facility],US,NON-IMG Medicine POCT URINALYSIS 2022-02-27 00:00:00 [facility] of DIPSTICK Medicine MICHELLE,POST-VOID 2022-02-27 00:00:00 [facility] of RES,US,NON-IMG Medicine Plan of Care Planned Activity Planned Date Details Comments Source Future Scheduled 2022-02-27 Screening for [facility] Test 14:28:51 malignant neoplasm of Medici ne of colon (procedure) [code = 690561987] Future Scheduled 2022-02-27 Screening for [facility] Test 14:28:51 malignant neoplasm of Medici ne of breast (procedure) [code = 120755277] Future Scheduled 2022-02-27 TETANUS SHOT (ADULT) [employer] Test 14:28:51 [code = TETANUS SHOT of Medi cine (ADULT)] Future Scheduled 2022-02-27 Hepatitis C [facility] Test 14:28:51 screening of Medicine (procedure) [code = 411827264] Future Scheduled 2022-02-27 ZOSTER VACCINE (1 of [place] [employer] Test 14:28:51 2) [code = ZOSTER of Medicin e VACCINE (1 of 2)] Future Scheduled 2022-02-27 MEDICARE AWV [facility] Test 14:28:51 (Initial) [code = of Medicin e MEDICARE AWV (Initial)] Future Scheduled 2022-02-27 FALL SCREEN [code = [employer] Test 14:28:51 FALL SCREEN] of Medicine Future Scheduled 2022-02-27 Screening for [facility] Test 14:28:51 osteoporosis of Medicine (procedure) [code = 186204036] Future Scheduled 2022-02-27 Pneumococcal 65+ (1 [employer] Test 14:28:51 - PCV) [code = of Medicine Pneumococcal 65+ (1 - PCV)] Future Scheduled 2022-02-27 COVID-19 Vaccine (4 [employer] Test 14:28:51 - Booster for Pfizer of Medi cine series) [code = COVID-19 Vaccine (4 - Booster for Pfizer series)] Future Scheduled 2022-02-27 FLU VACCINE > 6 [facility] Test 14:28:51 MONTHS [code = FLU of Medici ne VACCINE > 6 MONTHS] Future Scheduled 2022-02-27 URINALYSIS AUTO Ordered: [facility] Test 14:16:13 W/SCOPE [code = 02/27/2022 of Medicine 61646-5] Future Scheduled 2022-02-27 CULTURE, Ordered: [facility] Test 14:16:13 URINE/SENSITIVITY ON 02/27/2022 of Medi cine ALL [code = 06574-8] Future Scheduled 2022-02-27 CYSTOSCOPY [code = 1 Occurrences [employer] Test 14:15:27 652178038] starting of Medicine 02/27/2022 until 02/27/2023 Encounters Start End Encounter Admission Attending Care Care Encounter Source Date/Time Date/Time Type Type Clinicians Facility Department ID 2021[facility]10-[address] [id number] Common 08:36:01 Erwin [facility] 2021-10-09 Outpatient [facility], STLMLC STLMLC [id number] Common 09:12:01 Erwin [facility] 2021-09-13 Outpatient [facility], STLMLC STLMLC [id number] Common 14:14:27 Erwin [facility] 2021-09-13 Outpatient [place], STLMLC STLMLC [id number] Common 13:39:56 Erwin [id number] [facility] 2021-09-13 Outpatient [place], STLMLC STLMLC [id number] Common 13:34:57 Erwin [facility] 2021-09-13 Outpatient [place], STLMLC STLMLC [id number] Common 13:34:37 Erwin [facility] 2021-09-13 Outpatient [place], STLMLC STLMLC [id number] Common 12:34:26 Erwin [facility] 2021-09-13 Outpatient [place], STLMLC STLMLC [id number] Common 12:33:53 Erwin [facility] 2021-09-13 Outpatient [place], STLMLC STLMLC [id number] Common 12:31:40 Erwin [facility] 2021-09-13 Outpatient [facility], STLMLC STLMLC [id number] Common 11:17:54 Erwin [id number] [facility] 2021-09-13 Outpatient [place], STLMLC STLMLC [id number] Common 11:02:19 Erwin [id number] [facility] 2021-09-13 Outpatient STLMLC STLMLC [id number] Common 11:02:06 [id number] [facility] 2021-09-13 Outpatient STLMLC STLMLC [id number] Common 10:59:03 [id number] [facility] 2022-03-20 2022-03-20 ambulatory STLMLC STLMLC [id number] Common 00:00:00 00:00:00 [facility] 2022-03-13 2022-03-13 ambulatory STLMLC STLMLC [id number] Common 00:00:00 00:00:00 [facility] 2022-03-12 2022-03-12 ambulatory STLMLC STLMLC [id number] Common 00:00:00 00:00:00 [facility] 2022-03-12 2022-03-12 ambulatory STLMLC STLMLC [id number] Common 00:00:00 00:00:00 [facility] 2022-03-12 2022-03-12 ambulatory STLMLC STLMLC [id number] Common 00:00:00 00:00:00 [facility] 2022-02-27 2022-02-27 Office CM CANTRELL [id number] 91 [facility] 12:43:12 14:25:13 Visit PAZ AMBULATOR [id number] College Y [id number] of [id number] Medi delilah 300 e 2022-02-20 2022-02-20 ambulatory STLMLC STLMLC [id number] Common 00:00:00 00:00:00 [facility] 2022-02-20 2022-02-20 ambulatory STLMLC STLMLC [id number] Common 00:00:00 00:00:00 [facility] 2022-02-20 2022-02-20 ambulatory STLMLC STLMLC [id number] Common 00:00:00 00:00:00 [facility] 2021-10-16 2021-10-16 ambulatory STLMLC STLMLC [id number] Common 00:00:00 00:00:00 [facility] 2021-10-09 2021-10-09 ambulatory STLMLC STLMLC [id number] Common 00:00:00 00:00:00 [facility] 2021-07-11 2021-07-11 ambulatory STLMLC STLMLC [id number] Common 00:00:00 00:00:00 [facility] 2021-07-11 2021-07-11 ambulatory STLMLC STLMLC [id number] Common 00:00:00 00:00:00 [facility] 2021-07-06 2021-07-06 ambulatory STLMLC STLMLC [id number] Common 00:00:00 00:00:00 [facility] 2021-06-21 2021-06-21 ambulatory STLMLC STLMLC [id number] Common 00:00:00 00:00:00 [facility] 2021-05-25 2021-05-25 Outpatient STLMLC STLMLC [id number] Common 00:00:00 00:00:00 [facility] 2021-04-26 2021-04-26 Outpatient STLMLC STLMLC [id number] Common 00:00:00 00:00:00 [facility] 2021-04-25 2021-04-25 Outpatient STLMLC STLMLC [id number] Common 00:00:00 00:00:00 [facility] 2021-04-06 2021-04-06 Outpatient STLMLC STLMLC [id number] Common 00:00:00 00:00:00 [facility] 2021-03-30 2021-03-30 Outpatient STLMLC STLMLC [id number] Common 00:00:00 00:00:00 [facility] 2021-03-24 2021-03-24 Outpatient STLMLC STLMLC [id number] Common 00:00:00 00:00:00 [facility] 2021-02-21 2021-02-21 Outpatient STLMLC STLMLC [id number] Common 00:00:00 00:00:00 [facility] 2021-02-06 2021-02-06 Outpatient STLMLC STLMLC [id number] Common 00:00:00 00:00:00 [facility] 2021-01-30 2021-01-30 Outpatient STLMLC STLMLC [id number] Common 00:00:00 00:00:00 [facility] 2021-01-30 2021-01-30 Outpatient STLMLC STLMLC [id number] Common 00:00:00 00:00:00 [facility] 2021-01-30 2021-01-30 Outpatient STLMLC STLMLC [id number] Common 00:00:00 00:00:00 [facility] 2020-11-07 2020-11-07 Outpatient STLMLC STLMLC [id number] Common 00:00:00 00:00:00 [facility] 2020-10-21 2020-10-21 Outpatient STLMLC STLMLC [id number] Common 00:00:00 00:00:00 [facility] 2020-10-19 2020-10-19 Outpatient STLMLC STLMLC [id number] Common 00:00:00 00:00:00 [facility] 2020-10-17 2020-10-17 Outpatient STLMLC STLMLC [id number] Common 00:00:00 00:00:00 [facility] 2020-10-11 2020-10-11 Outpatient STLMLC STLMLC [id number] Common 00:00:00 00:00:00 [facility] 2020-08-26 2020-08-26 Outpatient STLMLC STLMLC [id number] Common 00:00:00 00:00:00 [facility] 2020-07-26 2020-07-26 Outpatient STLMLC STLMLC [id number] Common 00:00:00 00:00:00 [facility] 2020-07-19 2020-07-19 Outpatient STLMLC STLMLC [id number] Common 00:00:00 00:00:00 [facility] 2020-06-06 2020-06-06 Outpatient STLMLC STLMLC [id number] Common 00:00:00 00:00:00 [facility] 2020-06-01 2020-06-01 Outpatient STLMLC STLMLC [id number] Common 00:00:00 00:00:00 [facility] 2020-04-12 2020-04-12 [id number] Common 11:30:00 11:30:[address] [facility] 2020-02-01 2020-02-01 [facility] [id number] Common 09:11:00 09:11:[address] [facility] 2020-01-25 2020-01-25 [facility] [id number] Common 14:30:00 14:30:[address] [facility] 2019-11-30 2019-11-30 [facility] [id number] Common 14:40:00 14:40:[address] [facility] 2019-11-30 2019-11-30 [facility] [id number] Common 10:38:00 10:38:[address] [facility] 2019-11-23 2019-11-23 [facility] [id number] Common 08:49:00 08:49:[address] [facility] 2019-09-09 2019-09-09 [facility] [id number] Common 09:00:00 09:00:[address] [facility] Results Test Description Test Time Test Comments Results Result Comments Source MICHELLE,POST-VOID RES,US,NON-IMG 2022-02-27 00:00:00 Test Item Value Reference Range Interpretation Comme nts PVR (test code = 6116) 0 ml cc[facility]ml [facility] [id number] 00:00:00 Test Item Value Reference Range Interpretation Comments COLOR UA (test code = 5778-6) Yellow YELLOW/STRAW CLARITY UA (test code = 55988-8) Clear CLEAR GLUCOSE UA (test code = 5792-7) Negative NEGATIVE BILIRUBIN UA (test code = 5770-3) Negative NEGATIVE KETONES UA (test code = 27721-9) Negative NEGATIVE SPECIFIC GRAVITY UA (test code = 1.005-1.035 A 5811-5) BLOOD UA (test code = 5794-3) Moderate 2+ NEGATIVE PH UA (test code = 5803-2) 5-9 PROTEIN UA (test code = 5804-0) Negative NEGATIVE UROBILINOGEN UA (test code = 0.02 E.U/DL NORMAL MG/DL 5818-0) LEUKOCYTE ESTERASE UA (test code Negative NEGATIVE = 5799-2) NITRITE UA (test code = 5802-4) Negative NEGATIVE REDUCING SUBSTANCES URINE (test code = 63499-5) Lab Interpretation (test code = Abnormal 31823-4) [facility]
[2022-03-22 17:51] LABS: Absolute Lymphocytes (CBC) 1.8 K/uL (0.7-4.9); Hematocrit 37.3 % (36.0-45.0); Lymphocytes % 28.3 % (15.3-44.8); MCV 87.8 fL (80-100); MPV 7.4 fL (7.6-11.3); RBC Red Blood Cell Count 4.25 M/uL (3.86-4.86)
[2022-03-22 18:04] LABS: Urine Blood Trace-lysed (Negative); Urine Glucose Negative (Negative); Urine Protein Negative (Negative); Urine Specific Gravity 1.015 (1.005-1.030)
--- NOTE | 2022-03-22 18:06 | RAD REPORT ---
EXAM DESCRIPTION: RAD - Chest Single View - 03/22/2022 5:51 pm CLINICAL HISTORY: Cough COMPARISON: Single-view chest 03/30/2021 TECHNIQUE: AP portable chest image was obtained 03/22/2022 5:51 pm . FINDINGS: Lungs are clear. Interstitial pattern matches comparison. No bhupinder mass or lymphadenopathy. Heart and vasculature are normal. No measurable pleural effusion and no pneumothorax. No acute bony abnormality seen. No acute aortic findings suspected. IMPRESSION: No acute cardiopulmonary process.
[2022-03-22 18:10] LABS: Potassium 3.9 mmol/L (3.5-5.1); Thyroid Stimulating Hormone 1.22 uIU/mL (0.360-3.740)
[2022-03-22 18:58] LABS: Urine Bacteria 20-50 /HPF (<20); Urine RBC <5 /HPF (None Seen)
--- NOTE | 2022-03-22 19:05 | RAD REPORT ---
EXAM DESCRIPTION: CT - Chest For Pe Angio - 03/22/2022 6:43 pm CLINICAL HISTORY: shortness of breath COMPARISON: Chest Single View dated 03/22/2022 TECHNIQUE: Dynamically enhanced 3 mm thick images of the chest were obtained during administration o f approximately 150mL Isovue 370 IV contrast. Coronal and oblique MIP reconstruction images were gene rated and reviewed. Exam utilizes a protocol to evaluate the pulmonary arterial tree. All CT scans are performed using dose optimization technique as appropriate and may include automated exposure control or mA/KV adjustment according to patient size. FINDINGS: No pulmonary emboli are identified. The aorta as imaged shows no acute or suspicious finding. No pericardial thickening or effusion. No infiltrate or mass in the lung parenchyma. No pleural effusion or pleural thickening. No mediastinal or hilar suspicious masses. No chest wall masses or abnormal axillary lymphadenopathy. IMPRESSION: No pulmonary emboli identified. No other significant or suspicious findings.
--- NOTE | 2022-03-22 20:03 | ER ---
Nurse's Notes [facility] Name: Margarita Dumont Age: 66 yrs Sex: Female : 1955 Arrival Date: 03/22/2022 Time: 16:54 Bed 26 Private MD: Diagnosis: Coronavirus infection, unspecified;UTI/ Urinary tract infection, site not specified Presentation: 03/22 17:01 Coronavirus screen: Vaccine status: Patient reports receiving the 2nd dose of the covid ld1 vaccine. 17:08 Chief complaint: Patient states: Back pain, weakness, blisters in mouth, unintentional ld1 weight loss of 13 lbs in last 2 weeks. Ebola Screen: No symptoms or risks identified at this time. Initial Sepsis Screen: Does the patient meet any 2 criteria? No. Patient's initial sepsis screen is negative. Does the patient have a suspected source of infection? No. Patient's initial sepsis screen is negative. Risk Assessment: Do you want to hurt yourself or someone else? Patient reports no desire to harm self or others. Onset of symptoms was March 12, 2022. 17:08 Method Of Arrival: Ambulatory ld1 17:08 Acuity: SETH 3 ld1 Triage Assessment: 17:08 General: Appears in no apparent distress. comfortable, Behavior is calm, cooperative, ld1 appropriate for age. Pain: Complains of pain in left mid back Pain does not radiate. Pain currently is 5 out of 10 on a pain scale. Neuro: Level of Consciousness is awake, alert, obeys commands, Oriented to person, place, time, situation. Cardiovascular: Capillary refill < 3 seconds Patient's skin is warm and dry. Respiratory: Airway is patent Respiratory effort is even, unlabored. Derm: Rash noted that is red, vesicular, in mouth. Historical: - Allergies: 17:01 Codeine; ld1 17:01 Morphine; ld1 17:01 PENICILLINS; ld1 - Home Meds: 17:01 atorvastatin oral [Active]; lisinopril Oral [Active]; Synthroid Oral [Active]; Janumed ld1 [Active]; - PMHx: 17:01 diabetes mellitus; High Cholesterol; Hypertensive disorder; ld1 - PSHx: 17:01 Thyroidectomy; Hysterectomy; Cholecystectomy; Appendectomy; ld1 - Immunization history:: Adult Immunizations up to date. - Social history:: Smoking status: Patient denies any tobacco usage or history of. Patient/guardian denies using alcohol. Screenin:45 Abuse screen: Denies threats or abuse. Denies injuries from another. Nutritional hb screening: No deficits noted. Tuberculosis screening: No symptoms or risk factors identified. Fall Risk None identified. Assessment: 17:45 General: Appears in no apparent distress. Behavior is calm, cooperative. Pain: Pain hb currently is 5 out of 10 on a pain scale. Neuro: Level of Consciousness is awake, alert, obeys commands, Oriented to person, place, time, situation. Cardiovascular: Patient's skin is warm and dry. Respiratory: Respiratory effort is even, unlabored, Respiratory pattern is regular, symmetrical. GI: Reports nausea. : No signs and/or symptoms were reported regarding the genitourinary system. EENT: Reports blurred vision bilateral ear pain. Derm: Skin is pink, warm \T\ dry. Musculoskeletal: Reports body aches, headache. 18:51 Reassessment: Patient appears in no apparent distress at this time. Patient and/or hb family updated on plan of care and expected duration. Pain level reassessed. Patient is alert, oriented x 3, equal unlabored respirations, skin warm/dry/pink. 20:34 Reassessment: Patient appears in no apparent distress at this time. Patient and/or hb family updated on plan of care and expected duration. Pain level reassessed. Patient is alert, oriented x 3, equal unlabored respirations, skin warm/dry/pink. Vital Signs: 17:08 BP 136 / 65; Pulse 75; Resp 18; Temp 97.1; Pulse Ox 100% on R/A; Weight 56.25 kg; ld1 Height 5 ft. 4 in. (162.56 cm); Pain 5/10; 18:30 BP 104 / 52; Pulse 72; Resp 16; Pulse Ox 98% on R/A; hb 17:08 Body Mass Index 21.28 (56.25 kg, 162.56 cm) ld1 ED Course: 16:54 Patient arrived in ED. rg4 17:05 [facility]imena Jordan [facility]-C [facility]. kb 17:05 Kevin Glass MD is Attending Physician. kb 17:08 Arm band placed on right wrist. ld1 17:10 Triage completed. ld1 17:32 Eri Samayoa, RN is Primary Nurse. hb 17:38 Inserted saline lock: 20 gauge in left antecubital area, using aseptic technique. Blood zm collected. 17:39 Basic Metabolic Panel Sent. zm 17:39 CBC with Diff Sent. zm 17:39 D-Dimer Sent. zm 17:39 TSH Sent. zm 17:45 Patient has correct armband on for positive identification. hb 17:53 Chest Single View XRAY In Process Unspecified. EDMS 18:45 CT Chest For PE Angio In Process Unspecified. EDMS 20:33 No provider procedures requiring assistance completed. IV discontinued, intact, hb bleeding controlled, No redness/swelling at site. Administered Medications: No medications were administered Medication: 17:45 VIS not applicable for this client. hb Outcome: 20:02 Discharge ordered by . kb 20:33 Discharged to home ambulatory. hb 20:33 Condition: stable 20:33 Discharge instructions given to patient, Instructed on discharge instructions, follow up and referral plans. medication usage, Demonstrated understanding of instructions, follow-up care, medications. 20:34 Patient left the ED. hb Signatures: Dispatcher [employer] EDMS Ximena Jordan, DOUBLE CUT OFF SAW OPERATOR-C DOUBLE CUT OFF SAW OPERATOR-Ckb Eri Samayoa, RN RN Calista Villegas 4 Dana Interiano RN RN ld1 Kathy Woodruff Corrections: (The following items were deleted from the chart) 18:30 17:45 BP 104 / 52; Pulse 72bpm; Resp 16bpm; Pulse Ox 98% RA; hb hb
--- NOTE | 2022-03-22 20:03 | EDPHYS ---
Physician Documentation [facility] Name: Margarita Dumont Age: 66 yrs Sex: Female : 1955 Arrival Date: 03/22/2022 Time: 16:54 Bed 26 Private MD: ED Physician Kevin Glass HPI: 03/23 00:40 This 66 yrs old Female presents to ER via Ambulatory with complaints of Sick. kb 00:40 The patient or guardian reports difficulty breathing, flu symptoms. Onset: The kb symptoms/episode began/occurred 10 day(s) ago. Severity of symptoms: At their worst the symptoms were mild, moderate, in the emergency department the symptoms are unchanged. Modifying factors: The symptoms are alleviated by nothing, the symptoms are aggravated by nothing. Associated signs and symptoms: The patient has no apparent associated signs or symptoms. The patient has not experienced similar symptoms in the past. The patient has been recently seen by a physician:. Patient reports back pain, weakness, shortness of breath, malaise, fever blister to upper lip that makes eating difficult. States she was diagnosed with COVID a week and a half ago.. Historical: - Allergies: 03/22 17:01 Codeine; ld1 17:01 Morphine; ld1 17:01 PENICILLINS; ld1 - Home Meds: 17:01 atorvastatin oral [Active]; lisinopril Oral [Active]; Synthroid Oral [Active]; Janumed ld1 [Active]; - PMHx: 17:01 diabetes mellitus; High Cholesterol; Hypertensive disorder; ld1 - PSHx: 17:01 Thyroidectomy; Hysterectomy; Cholecystectomy; Appendectomy; ld1 - Immunization history:: Adult Immunizations up to date. - Social history:: Smoking status: Patient denies any tobacco usage or history of. Patient/guardian denies using alcohol. ROS: 03/23 00:39 Cardiovascular: Negative for chest pain, palpitations, and edema. kb Constitutional: Positive for malaise, poor PO intake. ENT: Positive for blister on lip. Respiratory: Positive for shortness of breath. Back: Positive for pain at rest, pain with movement. Neuro: Positive for weakness. Exam: 00:14 Constitutional: This is a well developed, well nourished patient who is awake, alert, kb and in no acute distress. Head/Face: Normocephalic, atraumatic. ENT: Moist Mucous membranes Cardiovascular: Regular rate and rhythm with a normal S1 and S2. No gallops, murmurs, or rubs. No pulse deficits. Respiratory: Respirations even and unlabored. No increased work of breathing. Talking in full sentences Abdomen/GI: Soft, non-tender. No distention Skin: Warm, dry with normal turgor. Normal color. MS/ Extremity: Pulses equal, no cyanosis. Neurovascular intact. Full, normal range of motion. Neuro: Awake and alert, GCS 15, oriented to person, place, time, and situation. Moves all extremities. Normal gait. Psych: Awake, alert, with orientation to person, place and time. Behavior, mood, and affect are within normal limits. 00:14 ENT: Mouth: Lips: upper humberto border, Fever blister noted. Vital Signs: 03/22 17:08 BP 136 / 65; Pulse 75; Resp 18; Temp 97.1; Pulse Ox 100% on R/A; Weight 56.25 kg; ld1 Height 5 ft. 4 in. (162.56 cm); Pain 5/10; 18:30 BP 104 / 52; Pulse 72; Resp 16; Pulse Ox 98% on R/A; hb 17:08 Body Mass Index 21.28 (56.25 kg, 162.56 cm) ld1 MDM: 17:05 Patient medically screened. kb 03/23 00:14 Data reviewed: vital signs, nurses notes. Data interpreted: Pulse oximetry: on room air kb is 98 %. Interpretation: normal. Counseling: I had a detailed discussion with the patient and/or guardian regarding: the historical points, exam findings, and any diagnostic results supporting the discharge/admit diagnosis, lab results, radiology results, the need for outpatient follow up, a family practitioner, to return to the emergency department if symptoms worsen or persist or if there are any questions or concerns that arise at home. 03/22 17:19 Order name: CBC with Diff; Complete Time: 18:09 kb 03/22 17:19 Order name: Basic Metabolic Panel; Complete Time: 18:12 kb 03/22 17:19 Order name: D-Dimer; Complete Time: 18:12 kb 03/22 17:19 Order name: TSH; Complete Time: 18:12 kb 03/22 18:04 Order name: Urine Dipstick-Ancillary; Complete Time: 18:05 EDMS 03/22 18:05 Order name: Urine Microscopic Only; Complete Time: 19:00 kb 03/22 17:19 Order name: IV Start; Complete Time: 17:39 kb 03/22 17:19 Order name: Chest Single View XRAY; Complete Time: 18:09 kb 03/22 17:19 Order name: Urine Dipstick-Ancillary (obtain specimen); Complete Time: 17:59 kb 03/22 18:13 Order name: CT Chest For PE Angio; Complete Time: 19:07 kb 03/22 19:00 Order name: Urine Culture EDMS Administered Medications: No medications were administered Disposition: : Co-signature as Attending Physician, Kevin Glass MD I agree with the assessment and kdr plan of care. Disposition Summary: 03/22/22 20:02 Discharge Ordered Location: Home kb Condition: Stable kb Diagnosis - Coronavirus infection, unspecified kb - UTI/ Urinary tract infection, site not specified kb Followup: kb - With: Emergency Department - When: As needed - Reason: Worsening of condition Followup: kb - With: Private Physician - When: 2 - 3 days - Reason: Recheck today's complaints, Continuance of care, Re-evaluation by your physician Discharge Instructions: - Discharge Summary Sheet kb - Urinary Tract Infection, Adult, [id number] kb - Viral Respiratory Infection, [id number] kb - COVID-19 kb Forms: - Medication Reconciliation Form kb - Thank You Letter kb - Antibiotic Education kb - Prescription Opioid Use kb Prescriptions: - Macrobid 100 mg Oral Capsule - take 1 capsule by ORAL route every 12 hours for 7 days; 14 capsule; Refills: 0, kb Product Selection Permitted Signatures: Dispatcher [employer] EDMS Ximena Jordan, ANALOG DEVICE DESIGNER-C Kevin Rai MD MD kdr Dibbern, Lauren, RN RN ld1
[2022-03-23 00:37] VITALS: TEMP 97.1
[2022-03-23 00:45] VITALS: BP 104/52; O2SAT 98
== END 2022-03-22 20:34 | disposition home or self-care (01) ==
LOC: ER 16:51
DX: U07.1 COVID-19 (principal); N39.0 Urinary tract infection, site not specified; E11.9 Type 2 diabetes mellitus without complications; I10 Essential (primary) hypertension; Z88.0 Allergy status to penicillin; Z88.5 Allergy status to narcotic agent
CPT/HCPCS: 87088; 85025; 87086; 80048; 36415; 85379; 84443; 71275; 71045; 99283; Q9967; 81003; 81015